=== PATIENT | male | born 1995 | race African-American/Black ===

== ENCOUNTER 2017-02-17 23:50 | Emergency (ER) | payer OTHER, SELFPAY | END 2017-02-18 00:15 | disposition home or self-care (01) | LOC: BURERS 23:50 | DX: S05.11XA Contusion of eyeball and orbital tissues, right eye, initial encounter (principal); S20.319A Abrasion of unspecified front wall of thorax, initial encounter; F31.9 Bipolar disorder, unspecified; Y04.2XXA Assault by strike against or bumped into by another person, initial encounter | CPT/HCPCS: 90471 ==

== ENCOUNTER → 2019-08-16 | Emergency (ER) | payer SELFPAY ==
[~2019-08-16] MED LIST: Acetaminophen/Codeine 30-300mg Tablet ONE
--- NOTE | 2019-08-16 21:44 | RAD ---
RIGHT GREAT TOE THREE VIEWS: 08/16/19 HISTORY: Injury, right great toe pain. FINDINGS/IMPRESSION: There are fractures involving the base of the distal phalanx of the right great toe. A displaced frag ment is seen at the plantar aspect. Fracture lines extend into the articular surface. POS: OFF
== END ==
LOC: BURERS 20:56
DX: S92.424A Nondisplaced fracture of distal phalanx of right great toe, initial encounter for closed fracture (principal); F17.210 Nicotine dependence, cigarettes, uncomplicated; F41.9 Anxiety disorder, unspecified; F31.9 Bipolar disorder, unspecified; W22.8XXA Striking against or struck by other objects, initial encounter

== ENCOUNTER 2024-04-16 09:11 | Emergency (ER) | payer OTHER, SELFPAY ==
[2024-04-16] MEDS ORDERED: Lorazepam 2 MG/ML VIAL ONE (09:25)
[2024-04-16 09:31] LABS: #Basophils 0.4 thou/uL (0.0-0.2); #Lymphocytes 2.6 thou/uL (1.20-3.40); #Monocytes 0.8 thou/uL (0.11-0.59); #Neutrophils 11.6 thou/uL (1.40-6.50); %Basophils 2.5 % (0.0-1.0); %Eosinophils 0.2 % (0.0-10.0); %Lymphocytes 16.6 % (21.0-51.0); %Monocytes 5.2 % (0.0-10.0); %Neutrophils 75.6 % (42.0-75.0); Hematocrit 43.8 % (42.0-52.0); Hemoglobin 14.9 g/dL (14.0-18.0); Mean Corpuscular Hemoglobin 32.2 pg (27.0-31.0); Mean Corpuscular Volume 94.7 fl (78.0-98.0); Platelet Count 164 10x3/uL (130-400); Red Blood Cell (RBC) Count 4.63 mill/uL (4.70-6.10); White Blood Cell (WBC) Count 15.3 10x3/uL (4.8-10.8)
[2024-04-16 09:45] LABS: ALT (SGPT) 30 U/L (8-55); AST (SGOT) 70 U/L (5-34); Albumin 4.6 g/dL (3.5-5.0); Alkaline Phosphatase 58 U/L (40-110); Anion Gap 20 mmol/L (10-20); BUN (Urea Nitrogen) 9 mg/dL (8.9-20.6); Bilirubin, Total 0.7 mg/dL (0.2-1.2); Calc. Creatinine Clearance 0 mL/min (70-130); Calcium 9.7 mg/dL (7.8-10.44); Carbon Dioxide 19 mmol/L (22-29); Chloride 106 mmol/L (98-107); Estimated GFR 92; Glucose 108 mg/dL (70-105); Potassium 4.1 mmol/L (3.5-5.1); Protein, Total 7.6 g/dL (6.0-8.3); Sodium 141 mmol/L (136-145)
[2024-04-16] MEDS ORDERED: Lidocaine 1% w/Epinephrine 1:100K 20 ML VIAL ONE (10:23)
[2024-04-16] MEDS ORDERED: Cephalexin 250 MG CAP ONE (11:49)
[2024-04-16] MEDS ORDERED: Boostrix 0.5 ML (Tdap) VIAL (>/=7 yrs of age) ONE (11:49)
[2024-04-16] MEDS ORDERED: Bacitracin 1 PK ONE (12:18)
[2024-04-16 13:01] LABS: Bilirubin Negative (Negative); Blood, Urine Small (Negative); Clarity Clear (Clear); Glucose, Urine (Dipstick) Negative (Negative); Ketone, Urine 15 mg/dL (Negative); Leukocyte Negative (Negative); Nitrite Negative (Negative); Protein, Urine (Dipstick) Trace mg/dL (Neg-Trace); Urobilinogen 0.2 mg/dL (Less than 2)
[2024-04-16 13:08] LABS: Bacteria/HPF 2+ HPF (None Seen); CAUTI Indications for Culture Dysuria,urgency,freq; Squamous Epithelial 0-3 HPF (0-3); WBC/HPF 0-3 HPF (0-3)
[2024-04-16 13:09] LABS: Urine Culture Reflex No No
== END 2024-04-16 12:56 | disposition home or self-care (01) ==
LOC: BURERS 09:11
DX: S41.111A Laceration without foreign body of right upper arm, initial encounter (principal); S61.411A Laceration without foreign body of right hand, initial encounter; S00.93XA Contusion of unspecified part of head, initial encounter; S70.11XA Contusion of right thigh, initial encounter; S90.412A Abrasion, left great toe, initial encounter; V49.9XXA Car occupant (driver) (passenger) injured in unspecified traffic accident, initial encounter; Z23 Encounter for immunization
CPT/HCPCS: 12001; 12032; 71046; 80053; 81001; 85025; 90471; 90715; 96374; J2060